=== PATIENT | female | born 1955 | race Caucasian/White ===

== ENCOUNTER → 2017-10-13 | Outpatient (CLI) | payer BC ==
[~2017-10-13] MED LIST: ALLERGY SYRING1 EAC1; ALORA1 EAC1 PO; B12 5,000 MCG1 EACH; CALCIUM500 M1 PO; DEXAMETHASONE SOD PHOS INJ 4 MG/ML VIAL ONE; DEXILANT60 MG PO; DOXEPIN HCL150 MG PO; FENTANYL CITRATE/PF 100MCG/2 ML INJ ONE; FLAX OIL1000 MG PO; GADOBUTROL 10 MMOL/10 ML VIAL IV ONE; GARLIC1000 MG PO; LIDOCAINE HCL 2% LOCAL INJ 5 ML SDV VIAL INJ ONE; LORCET 101 TAB PO; MIDAZOLAM HCL 2 MG/2 ML VIAL ONE; ONDANSETRON HCL INJ 2 MG/ML VIAL ONE; PHENERGAN SUPP25 MG PO; POTASSIUM 25 M25 MEQ PO; PROBIOTIC COMP1 EACH PO; PROPOFOL IV EMULSION 10 MG/ML 50 ML VIAL ONE; QUETIAPINE FUM100 MG PO; TRIAMTERENE-HC1 EAC2 PO; XANAX XR2 MG PO
--- NOTE | 2017-10-13 14:59 | Diagnostic Imaging Report ---
Examination: Intracranial MRA without Contrast History: Vertigo. Headache. Comparison studies: None Technique: 3-D [id number] MR angiogram of the intracranial circulation was obtained. MIP images of the arteries were isolated into anterior and posterior intracranial circulations, 180 degree projections. Sagittal and coronal MPR images, and axial source images are available for evaluation. Findings: Internal carotid arteries: Patent. Anterior cerebral arteries: Patent bilateral A1 segments. Middle cerebral arteries: Patent bilateral M1 segments. Vertebrobasilar circulation: Patent. Posterior cerebral arteries: Patent. Anatomical variants: Anterior communicating arteries: Patent. Posterior communicating arteries: Bilaterally patent. Vertebral arteries:Codominant. IMPRESSION: No intracranial arterial stenosis or occlusion or vascular malformation. Signed by: Dr. Nano Lopez M.D. on 10/13/2017 2:56 PM
--- NOTE | 2017-10-13 15:05 | Diagnostic Imaging Report ---
Examination: MRI BRAIN WITHOUT AND WITH CONTRAST History: Vertigo. Headache. Comparison studies: None Technique: Pre-contrast: Sagittal T2; axial GRE or SWI, DWI, T2, FLAIR; axial 3-D T2 through the internal auditory canals Post-contrast: Axial T1 through the internal auditory canals and brain. Intravenous contrast: 6.6 mL Gadavist. Findings: Scalp: No abnormal signal. No masses. Bone marrow: Normal in signal intensity. Brain volume: Adequate for age. No volume loss. Ventricles: Normal in size and configuration. No hydrocephalus. Parenchyma: No abnormal signal intensities. No masses, hemorrhage, or acute vascular insults. Cerebellopontine angle cisterns: Clear. No masses. Internal auditory canals: Symmetric. No masses. No abnormal enhancement. Extra-axial spaces: No lesion, fluid collection or hematoma. Enhancement: No abnormal enhancement. Suprasellar and sellar region: No abnormalities. Craniocervical junction: No abnormalities. The foramen magnum is patent. No Chiari malformations. Vessels: Normal flow-voids in the arteries and sinuses. Additional findings:None. IMPRESSION: 1. No intracranial abnormalities. 2. No abnormalities of the internal auditory canals or labyrinth. Signed by: Dr. Nano Lopez M.D. on 10/13/2017 3:02 PM
== END ==
LOC: MRI 07:48
PROVIDERS: ATTEND Psychiatry & Neurology Neurology
DX: R42 Dizziness and giddiness (principal); R41.3 Other amnesia; G43.719 Chronic migraine without aura, intractable, without status migrainosus; Z82.49 Family history of ischemic heart disease and other diseases of the circulatory system
CPT/HCPCS: 70544; 70553; A9585; J1100; J2001; J2250; J2405

== ENCOUNTER 2018-09-15 13:15 | Emergency (ER) | payer BC, OTHER ==
[~2018-09-15] VITALS: Ht 165.1 cm; Wt 65.8 kg
[~2018-09-15 13:15] MED LIST changes: -DEXAMETHASONE SOD PHOS INJ 4 MG/ML VIAL ONE; -FENTANYL CITRATE/PF 100MCG/2 ML INJ ONE; -GADOBUTROL 10 MMOL/10 ML VIAL IV ONE; -LIDOCAINE HCL 2% LOCAL INJ 5 ML SDV VIAL INJ ONE; -MIDAZOLAM HCL 2 MG/2 ML VIAL ONE; -ONDANSETRON HCL INJ 2 MG/ML VIAL ONE; -PROPOFOL IV EMULSION 10 MG/ML 50 ML VIAL ONE
--- OUTSIDE RECORDS SUMMARY | 2018-09-15 13:19 | XMS REPORT ---
Author [facility] Address Unknown Phone Unavailable Care Team Providers Care Seam Presser Name Role Phone AUGUSTA MENARD Unavailable Unavailable Problems This patient has no known problems. Allergies, Adverse Reactions, Alerts This patient has no known allergies or adverse reactions. Medications This patient has no known medications. Results Test Description Test Time Test Comments Text Results Atomic Results Result Comments MRA HEAD WO [place] [address] Patient Name: TRINY SEE MR #: [id number] : 1955 Age/Sex: 62/F Req #: [id number] [facility] Physician: Ordered by: AUGUSTA MENARD MD Report #: [id number] Location: MRI Room/Bed: Procedure: [id number] MRI/MRA HEAD WO Exam Date: 10/13/17 Exam Time: 1015 REPORT STATUS: Signed Examination: Intracranial MRA without Contrast History: Vertigo. Headache. Comparison studies: None Technique: 3-D [id number] MR angiogram of the intracranial circulation was obtained. MIP images of the arteries were isolated into anterior and posterior intracranial circulations, 180 degree projections. Sagittal and coronal MPR images, and axial source images are available for evaluation. Findings: Internal carotid arteries: Patent. Anterior cerebral arteries: Patent bilateral A1 segments. Middle cerebral arteries: Patent bilateral M1 segments. Vertebrobasilar circulation: Patent. Posterior cerebral arteries: Patent. Anatomical variants: Anterior communicating arteries: Patent. Posterior communicating arteries: Bilaterally patent. Vertebral arteries:Codominant. IMPRESSION: No intracranial arterial stenosis or occlusion or vascular malformation. Signed by: Dr. Nano Lopez M.D. on 10/13/2017 2:56 PM Dictated By: NANO NASCIMENTO MD 55 Transcribed By: KAROLYN on 10/13/171455 COPY TO: AUGUSTA MENARD MD MRI BRAIN WOW [place] [address] Patient Name: TRINY SEE MR #: [id number] : 1955 Age/Sex: 62/F Req #: [id number] Adm Physician: Ordered by: AUGUSTA MENARD MD Report #: [id number] Location: MRI Room/Bed: Procedure: [id number] MRI/MRI BRAIN WOW Exam Date: 10/13/17 Exam Time: 1015 REPORT STATUS: Signed Examination: MRI BRAIN WITHOUT AND WITH CONTRAST History: Vertigo. Headache. Comparison studies: None Technique: Pre-contrast: Sagittal T2; axial GRE or SWI, DWI, T2, FLAIR; axial 3-D T2 through the internal auditory canals Post-contrast: Axial T1 through the internal auditory canals and brain. Intravenous contrast: 6.6 mL Gadavist. Findings: Scalp: No abnormal signal. No masses. Bone marrow: Normal in signal intensity. Brain volume: Adequate for age. No volume loss. Ventricles: Normal in size and configuration. No hydrocephalus. Parenchyma: No abnormal signal intensities. No masses, hemorrhage, or acute vascular insults. Cerebellopontine angle cisterns: Clear. No masses. Internal auditory canals: Symmetric. No masses. No abnormal enhancement. Extra-axial spaces: No lesion, fluid collection or hematoma. Enhancement: No abnormal enhancement. Suprasellar and sellar region: No abnormalities. Craniocervical junction: No abnormalities. The foramen magnum is patent. No Chiari malformations. Vessels: Normal flow-voids in the arteries and sinuses. Additional findings:None. IMPRESSION: 1. No intracranial abnormalities. 2. No abnormalities of the internal auditory canals or labyrinth. Signed by: Dr. Nano Lopez M.D. on 10/13/2017 3:02 PM Dictated By: NANO NASCIMENTO MD [id number] Transcribed By: KAROLYN on 10/13/17 150 COPY TO: AUGUSTA MENARD MD
--- NOTE | 2018-09-15 14:22 | Diagnostic Imaging Report ---
CT BRAIN WO HISTORY: Trauma COMPARISON: MRI of the brain 10/13/2017 TECHNIQUE: Noncontrast axial scans were obtained from skull base to the vertex. Coronal and sagittal reconstructions obtained from the axial data. One or more of the following dose reduction techniques were used: Automated exposure control, adjustment of the mA and/or kV according to patient size, and/or utilization of iterative reconstruction technique. DISCUSSION: Scalp/Skull: Right pterional craniotomy changes are present. Otherwise, no calvarial fracture is seen. Brain sulci: Appropriate for patient's age. Ventricles: Normal in size and configuration. No hydrocephalus. Extra-axial spaces: No masses or fluid collections. Parenchyma: Carotid siphon calcifications are present. No masses, hemorrhage, or large vascular territory acute infarct. Dural sinuses: No abnormal densities. Sellar/Suprasellar region: Intact. Skull base: Intact. Incidental findings: None. IMPRESSION: No acute intracranial abnormalities. Signed by: Dr. Brennen Mcclure M.D. on 09/15/2018 2:19 PM
[2018-09-15 17:41] VITALS: BP 120/75
== END 2018-09-15 17:50 | disposition home or self-care (01) ==
LOC: ER 13:15
DX: S06.0X0A Concussion without loss of consciousness, initial encounter (principal); W18.39XA Other fall on same level, initial encounter; Y92.008 Other place in unspecified non-institutional (private) residence as the place of occurrence of the external cause
CPT/HCPCS: 70450; 99283

== ENCOUNTER 2019-06-22 10:13 | Emergency (ER) | payer OTHER ==
[~2019-06-22] VITALS: Ht 165.1 cm; Wt 65.8 kg
[2019-06-22 11:00] LABS: BILIRUBIN,URINE NEGATIVE (NEGATIVE); CLARITY,URINE CLEAR (CLEAR); COLOR,URINE YELLOW (YELLOW); KETONES,URINE NEGATIVE (NEGATIVE); LEUKOCYTE ESTERASE ,URINE TRACE (NEGATIVE); NITRITE,URINE NEGATIVE (NEGATIVE); PROTEIN,URINE DIPSTICK NEGATIVE (NEGATIVE); URINE UROBILINOGEN 0.2 mg/dL (0.2 - 1)
[2019-06-22 11:09] LABS: BENZODIAZEPINES SCREEN,URINE POSITIVE (NEGATIVE)
[2019-06-22 11:10] LABS: AMPHETAMINES SCREEN,URINE NEGATIVE (NEGATIVE); PHENCYCLIDINE SCREEN,URINE NEGATIVE (NEGATIVE); PREGNANCY TEST, URINE NEGATIVE (NEGATIVE)
[2019-06-22 11:12] LABS: BACTERIA,URINE MODERATE /HPF; EPITHELIAL CELLS,URINE MODERATE /LPF; RBC,URINE 0-5 /HPF (0-5); WBC,URINE (MAN) 0-5 /HPF (0-5)
[2019-06-22 11:50] LABS: BASOPHILS % 0.4 % (0.0-1.0); EOSINOPHILS % 0.4 % (0.0-6.0); HEMATOCRIT 39.7 % (34.2-44.1); HEMOGLOBIN 13.1 g/dL (12.0-16.0); LYMPHOCYTES # (AUTO) 2.2 (1.0-3.2); MEAN CORPUSCULAR HEMOGLOBIN 28.5 pg (28-32); MEAN CORPUSCULAR VOLUME 86.5 fL (81-99); MONOCYTES # (AUTO) 0.4 (0.2-0.8); MONOCYTES % 7.8 % (4.4-11.3); NEUTROPHILS # (AUTO) 1.9 (2.1-6.9); NEUTROPHILS % 42.2 % (38.7-80.0); PLATELET COUNT 278 x10e3/uL (140-360); RED BLOOD COUNT 4.59 x10e6/uL (3.6-5.1); RED CELL DISTRIBUTION WIDTH 12.4 % (11.7-14.4)
[2019-06-22 12:04] LABS: ALBUMIN 3.7 g/dL (3.5-5.0); ALBUMIN/GLOBULIN RATIO 1.1 (0.8-2.0); ANION GAP 13.1 mmol/L (8-16); CALCIUM 9.9 mg/dL (8.4-10.2); CREATININE, SERUM 1.35 mg/dL (0.57-1.11); MAGNESIUM 2.5 MG/DL (1.3-2.1); POTASSIUM 3.1 mmol/L (3.5-5.1)
[2019-06-22 12:13] LABS: CREATINE KINASE MB 0.7 ng/mL (0-5.0)
--- NOTE | 2019-06-22 12:14 | Diagnostic Imaging Report ---
EXAM: CHEST SINGLE (PORTABLE) DATE: 06/22/2019 10:54 AM INDICATION: Dizziness, vertigo COMPARISON: None FINDINGS: The trachea is midline. The lungs are symmetrically expanded without evidence for large focal consolidation, pneumothorax, or significant pleural effusion. The cardiomediastinal silhouette and pulmonary vasculature are within normal limits. No acute osseous abnormality is identified. The surrounding soft tissues are unremarkable. IMPRESSION: No acute cardiopulmonary process identified. Signed by: Dr. Dami Cramer MD on 06/22/2019 12:10 PM
[2019-06-22] MEDS ORDERED: POTASSIUM CHLORIDE 20 MEQ TAB CR PO STA (12:22)
[2019-06-22] MEDS ORDERED: MECLIZINE HCL 12.5 MG TAB PO ONE (12:45)
== END 2019-06-22 14:08 | disposition home or self-care (01) ==
LOC: ER 10:13
DX: H81.13 Benign paroxysmal vertigo, bilateral (principal); R10.13 Epigastric pain; K52.9 Noninfective gastroenteritis and colitis, unspecified; E87.6 Hypokalemia
CPT/HCPCS: 36415; 71045; 80053; 80307; 81001; 81025; 82550; 82553; 83690; 83735; 83880; 84484; 85025; 93005; 99284; J8597